=== PATIENT | male | born 2000 | race Caucasian/White ===

== ENCOUNTER 2024-12-15 10:24 | Emergency (ER) | payer OTHER, SELFPAY ==
--- OUTSIDE RECORDS SUMMARY | 2013-12-20 05:15 | XMS_ITS | Continuity of Care Document ---
Author Organization [facility] Address [address] [place] [address] Phone Care Team Providers Care Profiler Name Role Phone Yared Adams Unavailable Unavailable Procedures Procedure Date OFFICE/OUTPATIENT VISIT, [facility] IMMUNIZATION ADMIN TDAP VACCINE >7 IM Advance Directives Directive Yes / No Effective Date File Name Resuscitation Not Answered N/A N/A Life Support Not Answered N/A N/A Intubation Not Answered N/A N/A Antibiotics Not Answered N/A N/A IV Fluid Support Not Answered N/A N/A Tube Feed Not Answered N/A N/A Other Directive N/A N/A WARNING:The information contained in this section is historical and is provided for information only and does not constitute a legal document or any assurance that the information is still accurate. Please verify the information with the spencer of the legal document before using it for clinical purposes. Encounters Encounter Description Practice Location Reason(s) For Visit Diagnoses Date Provider Providers Copied on Encounter OFFICE/OUTPAT IENT VISIT, EST [facility], [address], [place], [id number], [place] tel:[phone] [facility] Need for prophylactic vaccination with combined diphtheria-tet anus-pertussis (DTP) (DTaP) vaccine Zuleyka Mari. [address], [place], [id number], [place]. tel:[phone] Family History Family Member Type Diagnosis Age At Onset No Information Immunizations Vaccine Date Status Comments Tdap administered Note: Tdap vis given. Mom declines MCV,HPV, and Hep A vaccines today. Information sheet given. ; Source: New Immunization Record Payers Payer name Insurance type Covered republican ID Shayan doyle(s) [employer] Medicaid [place] [id number] Social History Type Description Quantity Date Captured Comments Alcohol Use Details Unknown Caffeine Use Details Unknown Tobacco Use Status No Information Smoking Status No Information Sex Male Chief Complaint And Reason For Visit No Information Reason For Referral Reason For Referral No Information History Of Present Illness Encounter Date Complaint History Of Prese nt Illness No Information Functional Status Date Functional Assessmen t No Information Instructions Date Instruction Additional Infor mation No Information Assessments Type Assessment Date No Information Patient Care Teams Name Effective Dates (start - stop) Status Members No Information
--- OUTSIDE RECORDS SUMMARY | 2024-12-12 07:00 | XMS_ITS ---
Author Organization [facility] in [place] Address [address] [place] [address] Care Team Providers Care Author Name Role Phone Wong Mcwilliams Primary Care Provider [phone] Allergies Allergen (clinical drug ingredient) Drug/Non Drug Allergy documented on EMR Reaction Allergy Type Onset Date Status Substance with sulfonamide structure and antibacterial mechanism of action (substance) Sulfa Antibiotics childhood Drug Allergy Active REASON FOR VISIT Headache since - took Relpax daily since then- intensity comes and goes- today 2/10 pain level, feels better today Medications Medication SIG (Take, Route, Frequency, Duration) Notes Start Date End Date Status Viberzi 100 MG 1 tablet with food Orally Twice a day for 90 days 11/10/2024 Active Cefuroxime Axetil 250 MG 1 tablet Orally once a day 12/12/2024 Active Cyproheptadine HCl 4 MG 1 tablet Orally Twice a day for 30 days 05/24/2024 Active Multivitamin - 1 tablet Orally Once a day Active Relpax 40 MG 1 tablet Orally at onset of migraine PRN for 30 days DIRECTIONS FIXED 05/24/2024 Active Vital Signs Weight 168.4 lbs 12/12/2024 Height 71 in 12/12/2024 Blood pressure systolic 130 mm Hg 12/13/19 25 Blood pressure diastolic 80 mm Hg 025 BMI 23.48 kg/m2 12/12/2024 Encounters Encounter Location Date Provider Diagnosis [facility] [address] [place] [address] 12/12/2024 Wong Mcwilliams Migraine headache G43.909 Assessments Encounter Date Diagnosis (ICD Code) Assessment Notes Treatment Notes Treatment Clinical Notes Section Notes 12/12/2024 Migraine headache (ICD-10 - G43.909) 12/12/2024 Other Take NSAIDs as needed for pain. Discussed avoiding headache triggers and improiving diet and sleep habits to prevent headaches. Plan Of Treatment Treatment Notes Assessment Notes Other Take NSAIDs as neede d for pain. Discussed avoiding headache triggers and improiving diet and sleep habits to prevent headaches. Medications Administered Medication Instructions Date of Administration Dosage Notes Ketorolac Tromethamine 12/12/2024 60 mg Orphenadrine Citrate 12/12/2024 60 mg Progress Notes * Rashad MELENDEZ ADOB:[birth year] (24 yo M)Acc No.[id number]:12/12/2024 Progress Note Patient: Rashad CONTEH Provider: Keke Mcwilliams ([facility])MD :2000 A ge:24 Y S ex:Male Date:12/12/2024 Address:[address] [place] [address] Check In:11:00 AM ESTCheck O ut:11:35 AM EST Subjective: * Chief Complaints: * H eadache since - took Relpax daily since then- intensity comes and goes- today 2/10 pain level, feels better today * HPI: G eneral: feel like typical migraine - usualy relpax fixes t no other neurological symptosm - relpax is helping just not going away. H eadache: The patient complains of h eadache. Patient describes headache as - . Patient believes headaches are related to injury n o. Suspected triggers - . Symptoms have been present for 1 -2 days. The symptoms are m oderate. Symptomatic treatment has included N SAIDs. Associated symptoms include n beverley pain, diziness, fatigue.? * ROS: G eneral/Constitutional: Lightheadedness d enies. C hange in appetite d enies. W eight Change d enies. C ardiovascular: Irregular Heartbeat d enies. S welling in hands/feet?denies. R espiratory: Shortness of breath d enies. S hortness of breath at rest d enies. W heezing d enies. N eurologic: Comments S [facility] for details. * Active Problem List L70.9 Acne Modified On:02/09/2023/U Status:confirmed G43.909 Migraine headache Modified On:04/12/2023/U Status:confirmed K58.9 IBS (irritable bowel syndrome) Modified On:08/19/2023/U Status:confirmed B07.9 Wart of hand Modified On:02/17/2023/U Status:confirmed * Medical History: * Surgical History: t onsillectomy tympanostomy tube placement x3 * Hospitalization/Major Diagno stic Procedure: N o Hospitalization History. * Family History: F ather: alive. M other: alive, thyroid. B rother(s): alive. S ister(s): alive.?1 brother(s) , 1 sister(s) - healthy. . * Medications: T akingCefuroxime Axetil 250 MG Tablet 1 tablet Orally once a day Cyproheptadine HCl 4 MG Tablet 1 tablet Orally Twice a day Multivitamin(Multiple Vitamin) - Tablet 1 tablet Orally Once a day Relpax(Eletriptan Hydrobromide) 40 MG Tablet 1 tablet Orally at onset of migraine PRN , Notes to Pharmacist: DIRECTIONS FIXEDViberzi(Eluxadoline) 100 MG Tablet 1 tablet with food Orally Twice a day Medication List reviewed and reconciled with the patientTaking Cefuroxime Axetil 250 MG Tablet 1 tablet Orally once a day Taking Cyproheptadine HCl 4 MG Tablet 1 tablet Orally Twice a day Taking Multivitamin(Multiple Vitamin) - Tablet 1 tablet Orally Once a day Taking Relpax(Eletriptan Hydrobromide) 40 MG Tablet 1 tablet Orally at onset of migraine PRN , Notes to Pharmacist: DIRECTIONS FIXEDTaking Viberzi(Eluxadoline) 100 MG Tablet 1 tablet with food Orally Twice a day Medication List reviewed and reconciled with the patient * Allergies: S ulfa Antibiotics: childhood - Allergyno[Allergies Verified] Objective: * Vitals: W t:168.4lbs, Ht: 71 in, BP:130/80mm Hg, BMI:23.48Index, Ht-cm: 180.34 cm, Wt-k.39 kg. * Examination: G eneral Examination: GENERAL APPEARANCE: in no acute distress, well developed, well nourished. LUNGS: clear to auscultation bilaterally. CARDIO: S1, S2 normal, no murmurs, rubs, gallops. EXTREMITIES: no clubbing, cyanosis, or edema. NEUROLOGIC: alert, oriented to time, place, & person.? Assessment: * Assessment: 1. M igraine headache - G43.909 (Primary) Plan: * Treatment: * Therapeutic Injections: Ketorolac Tromethamine : 60 mg (Route: Intramuscular) given by CATIA Wan on right deltoid (Migraine headache) Orphenadrine Citrate : 60 mg (Route: Intramuscular) given by CATIA Wan on left deltoid (Migraine headache) * Procedure Codes: 9 6372 THERAP.INJ. OF MED. INTRAMUSCULAR OR [id number] TORADOL, PER 15 MG, Units: 4.00 , Modifiers: JZ J2360 NORFLEX,UP TO 60MG. * * Sign off status: Completed Visit Status: C HK (Check Out) true * Provider: Keke Mcwilliams ([facility])MD Date: 0 12/12/2024 Generated for Danna murphy/Mildred/Lanetteitting on: 0 12/15/2024 10:51 AM EDT History and Physical Notes * HPI (History of Present Illness) Category Sub-Category Detail Notes Category Not es Headache The patient complains of headache Patient describes headache as - Patient believes headaches are related t o injury no Suspected triggers - Symptoms have been present for 1-2 days The symptoms are moderate Symptomatic treatment has included NSAID s Associated symptoms include neck pain, d iziness, fatigue General feel like typical migraine - usualy relpax fixes t no other neurological symptosm - relpax is helping just not going away Examination Category Sub-Category Detail Notes Category Not es General Examination GENERAL APPEARANCE: in no ac [place] distress, well developed, well nourished CARDIO: S1, S2 normal, no mu rmurs, rubs, gallops LUNGS: clear to auscultatio n bilaterally NEUROLOGIC: alert, oriented to t ketan, place, & person EXTREMITIES: no clubbing, cyanosi s, or edema
[2024-12-15] VITALS (28 sets, daily range): BP systolic 125–152; BP diastolic 74–94; PULSE 61–881; TEMP 36.2–36.7; O2SAT 99–100
--- OUTSIDE RECORDS SUMMARY | 2024-12-15 05:15 | XMS_ITS ---
Author Organization The [facility] in [place] Address [address] [place] [address] Care Team Providers Care Human Services Program Specialist Name Role Phone Wong Mcwilliams Primary Care Provider [phone] Allergies Allergen (clinical drug ingredient) Drug/Non Drug Allergy documented on EMR Reaction Allergy Type Onset Date Status Substance with sulfonamide structure and antibacterial mechanism of action (substance) Sulfa Antibiotics childhood Drug Allergy Active REASON FOR VISIT Presents to office alone for c/o migraine off and on x1 week Medications Medication SIG (Take, Route, Frequency, Duration) Notes Start Date End Date Status Viberzi 100 MG 1 tablet with food Orally Twice a day for 90 days 11/10/2024 Active Multivitamin - 1 tablet Orally Once a day Active Relpax 40 MG 1 tablet Orally at onset of migraine PRN for 30 days DIRECTIONS FIXED 05/24/2024 Active Cefuroxime Axetil 250 MG 1 tablet Orally once a day 12/12/2024 Active Cyproheptadine HCl 4 MG 1 tablet Orally Twice a day for 30 days 05/24/2024 Active Social History Tobacco Use: Social History Observation Description Date Details (start date - stop date) Never Smoker NA - NA Tobacco Use/Smoking Question Answer Notes Patient is a nonsmoker AUDIT-C (Standard) Question Answer Notes Did you have a drink containing alcohol in the p ast year? No Points 0 Interpretation Negative Vital Signs Weight 167.2 lbs 12/15/2024 Height 71 in 12/15/2024 Blood pressure systolic 164 mm Hg 12/16/19 25 Blood pressure diastolic 122 mm Hg 025 BMI 23.32 kg/m2 12/15/2024 Encounters Encounter Location Date Provider Diagnosis [facility] [address] [place] [address] 12/15/2024 Wong Mcwilliams Migraine headache G43.909 Assessments Encounter Date Diagnosis (ICD Code) Assessment Notes Treatment Notes Treatment Clinical Notes Section Notes 12/15/2024 Migraine headache (ICD-10 - G43.909) Plan Of Treatment No Information Medications Administered Medication Instructions Date of Administration Dosage Notes Ketorolac Tromethamine 12/15/2024 60 mg Orphenadrine Citrate 12/15/2024 60 mg Promethazine 25mg 12/15/2024 25 mg Progress Notes * Rashad MELENDEZ ADOB:[birth year] (24 yo M)Acc No.[id number]:12/15/2024 UNLOCKED PROGRESS NOTE Progress Note Patient: Rashad CONTEH Provider: Keke Mcwilliams ([facility])MD :2000 A ge:24 Y S ex:Male Date:12/15/2024 Address:[address] [place], [place] [address] Check In:09:07 AM EST Subjective: * Chief Complaints: * 1 . Presents to office alone for c/o migraine off and on x1 week. * HPI: G eneral: Sots did help working - on limiting caffeine - has been limitin g meds. * ROS: E ENT: hearing changes d enies. v isual changes d enies.?non-healing mouth sores d enies. s wollen glands or neck lumps d enies. h oarseness d enies. s ore throat d enies. d ifficulty swallowing d enies. n ose bleeds d enies. n luisa congestion d enies. e ar ache d enies. e ar discharge?denies. r inging in ears d enies. l ight sensitivity d enies. e ye pain d enies. b lurring d enies. e ye irritation d enies. d ouble vision d enies.?vision loss d enies. G eneral/Constitutional: Sweats: D enies. F atigue d enies. S leep problems d enies. A norexia d enies. M alaise d enies. W eight loss d enies.?Fatigue or Weakness d enies. F ever or Chills d enies. C ardiovascular: Shortness of Breath w/lying flat d enies. L ightheadedness/dizziness d enies. C hest tightness/ heavy pressure d enies. S welling of legs, ankles, or feet d enies. W aking up with shortness of breath d enies. C hest pain denies. P alpitations d enies. W eight gain d enies. R espiratory: Chronic or frequent cough d enies. C oughing up blood?denies. D ifficulty breathing d enies. P roductive cough d enies. S noring?denies. S hortness of breath that awakens from sleep (PND) d enies. C hest pain d enies. S putum production d enies. W heezing d enies. M usculoskeletal: Joint pain d enies. J oint Fluid d enies. B ack pain d enies. K nee pain d enies. N beverley pain d enies. J oint Stiffness d enies. M uscle cramps d enies. W eakness of muscles d enies. A rthritis d enies. M uscle aches d enies. P ain in shoulder(s) d enies. S wollen joints d enies. * Medical History: I BS (irritable bowel syndrome), Migraine headache, Acne. * Surgical History: t onsillectomy , tympanostomy , tube placement x3 . * Family History: F ather: alive. M other: alive, thyroid. B rother(s): alive. S ister(s): alive.?1 brother(s) , 1 sister(s) - healthy. . * Social History: T obacco Use: T obacco Use/Smoking P atient is a n onsmoker D rug/Alcohol: A SARAI-C (Standard) D id you have a drink containing alcohol in the past year? N o P oints 0 I nterpretation N egative * Medications: T aking Cefuroxime Axetil 250 MG Tablet 1 tablet Orally once a day , Taking Cyproheptadine HCl 4 MG Tablet 1 tablet Orally Twice a day , Taking Multivitamin(Multiple Vitamin) - Tablet 1 tablet Orally Once a day , Taking Relpax(Eletriptan Hydrobromide) 40 MG Tablet 1 tablet Orally at onset of migraine PRN , Notes to Pharmacist: DIRECTIONS FIXED, Taking Viberzi(Eluxadoline) 100 MG Tablet 1 tablet with food Orally Twice a day , Medication List reviewed and reconciled with the patient * Allergies: S ulfa Antibiotics: childhood - Allergy. Objective: * Vitals: W t:167.2lbs, Ht: 71 in, BP:164/122mm Hg, BMI:23.32Index, Ht-cm: 180.34 cm, Wt-k.84 kg. * Examination: P hysical Exam: GENERAL: w ell developed, well nourished, in no acute distress. HEAD: n ormocephalic/atraumatic. EYES: p upils equal, round and reactive to light, conjunctivae and sclerae normal. EARS: n o deformity or lesion of external ear, canals and TM appear normal bilaterally, TM's intact, not inflamed with normal light reflex, hearing grossly normal to conversational speech. NOSE: n o deformity, discharge, inflammation, or lesions.? MOUTH: m ucous membranes moist, normal oropharynx and posterior pharynx without lesions or exudates, tongue normal, dentition normal. NECK: n beverley supple, no masses or palpable cervical nodes, trachea midline, thyroid without nodules, masses, tenderness, or enlargement. CHEST: n o chest wall deformity, no chest wall tenderness.? LUNGS: n ormal respiratory effort and clear to auscultation, no wheezes, rales, or rhonchi, good air exchange. CARDIO: r egular rate and rhythm, normal S1 and S2, nor murmur, rub, or gallop. PULSES: n ormal capillary refill. ABDOMEN: s oft, non-distended, non-tender, no masses. MUSCULOSKELETAL: n o deformity or scoliosis noted, normal range of motion, joints normal, no erythema, edema, effusion, or ecchymosis. EXTREMITY: n o clubbing, cyanosis, edema, or deformity with normal ROM in both upper and lower bilateral extremities. NEUROLOGIC: g rossly normal. SKIN: n o rashes, ulcerations, or suspicious lesions. LYMPH NODES: n o cervical adenopathy, nodes normal. MENTAL STATUS: a lert and oriented x3, normal mood and affect. Assessment: * Assessment: 1. M igraine headache - G43.909 (Primary) Plan: * Treatment: * Therapeutic Injections: Ketorolac Tromethamine : 60 mg (Route: Intramuscular) given by MALDONADO Rodriguez on left gluteus (Migraine headache) Orphenadrine Citrate : 60 mg (Route: Intramuscular) given by MALDONADO Rodriguez on right gluteus (Migraine headache) Promethazine 25mg : 25 mg (Route: Intramuscular) given by MALDONADO Rodriguez on left gluteus (Migraine headache) * Procedure Codes: J 2550 PHENERGAN 25MG, J1885 TORADOL, PER 15 MG, 81154 THERAP.INJ. OF MED. INTRAMUSCULAR OR SUBCUTANEOUS, J2360 NORFLEX,UP TO 60MG. * * Electronic signature of Wong Mcwilliams MD, [phone] on 12/15/2024 at 10:51 AM EDT Sign off status: Pending Visit Status: A RR (Check-In) * Provider: Keke Mcwilliams ([facility])MD Date: 12/15/2024 Generated for Chandanai jeffrey/Mildred/Lanetteitting on: 0 12/15/2024 10:51 AM EDT History and Physical Notes * HPI (History of Present Illness) Category Sub-Category Detail Notes Category Not es General Sots did help working - on limiting caffeine - has been limitin g meds Examination Category Sub-Category Detail Notes Category Not es Physical Exam GENERAL: well developed, well nourished, in no acute distress HEAD: normocephalic/atraum atic EYES: pupils equal, round and reactive to light, conjunctivae and sclerae normal EARS: no deformity or lesi on of external ear, canals and TM appear normal bilaterally, TM's intact, not inflamed with normal light reflex, hearing grossly normal to conversational speech NOSE: no deformity, discha rge, inflammation, or lesions MOUTH: mucous membranes keith st, normal oropharynx and posterior pharynx without lesions or exudates, tongue normal, dentition normal NECK: neck supple, no mass es or palpable cervical nodes, trachea midline, thyroid without nodules, masses, tenderness, or enlargement CHEST: no chest wall deform ity, no chest wall tenderness LUNGS: normal respiratory e ffort and clear to auscultation, no wheezes, rales, or rhonchi, good air exchange CARDIO: regular rate and rhy thm, normal S1 and S2, nor murmur, rub, or gallop PULSES: normal capillary ref ill ABDOMEN: soft, non-distended, non-tender, no masses RECTAL: MUSCULOSKELETAL: no deformity or scol iosis noted, normal range of motion, joints normal, no erythema, edema, effusion, or ecchymosis EXTREMITY: no clubbing, cyanosi s, edema, or deformity with normal ROM in both upper and lower bilateral extremities NEUROLOGIC: grossly normal SKIN: no rashes, ulceratio ns, or suspicious lesions LYMPH NODES: no cervical adenopat hy, nodes normal MENTAL STATUS: alert and oriented x 3, normal mood and affect
--- OUTSIDE RECORDS SUMMARY | 2024-12-15 06:23 | XMS_ITS ---
Author Organization The [facility] in [place] Address [address] [place] [address] Care Team Providers Care Linoleum Tile Floor Layer Name Role Phone Oswaldoosbaldo Wong Primary Care Provider REASON FOR VISIT repeat shots Encounters Encounter Location Date Provider Diagnosis [facility] [address] [place] [address] 12/15/2024 Wong Mcwilliams Plan Of Treatment No Information Progress Notes * Rashad MELENDEZ ADOB:[birth year] (24 yo M)Acc No.[id number]:12/15/2024 Patient: Alta Rashad HANKS :2000 A ge:24 Y S ex:Male Address:[address] [place] [address], [facility] * true * Date: Generated for Printi ng/Famog/eTransmitting on: 0 12/15/2024 10:51 AM EDT
--- NOTE | 2024-12-15 10:26 | ECG_ITS ---
The [facility] Test Date: 2024-12-15 Pat Name: LORA MELENDEZ Department: Room: - Gender: Female Angiography Nurse: : 2000 Requested By: [id number] Order Number: [id number] Reading MD: GANGA MCCALL M.D. Measurements Intervals Grants Rate: 63 P: 8 IL: 120 QRS: 73 QRSD: 100 T: 35 QT: 410 QTc: 418 Interpretive Statements 1100 Sinus rhythm [address]LEV, PROBABLE NORMAL EARLY REPOL PATTERN 9130 borderline ECG Compared to ECG 08/04/2019 07:51:46 ST (T wave) deviation now present Electronically Signed On 12-15-2024 19:31:39 EDT by GANGA MCCALL M.D.
--- NOTE | 2024-12-15 10:26 | CT_ITS ---
The [address] [address] Patient Name: LORA MELENDEZ MRN: [id number] date: 2000 Sex: M Assigned Patient Location: ED.MAIN Current Patient Location: ED.MAIN Accession/Order Number: [id number] Exam Date: 12/15/2024 10:59 Report Date: 12/15/2024 11:04 At the request of: XOCHITL LEE MD Procedure: CT head/brain wo con CT BRAIN WITHOUT CONTRAST: CLINICAL HISTORY: Patient awoke with migraine headache. Seizure today at Dr's office. COMPARISON: CT 01/15/2020 TECHNIQUE: Contiguous axial unenhanced images were obtained through the brain. This CT exam was performed using one or more following dose reduction techniques: Automated exposure control, adjustment of the mA and/or kV according to patient size, or use of iterative reconstruction technique. FINDINGS: The ventricles are normal in size and position. There are no areas of abnormal attenuation. There is no hemorrhage, mass effect or extra-axial collections. The imaged paranasal sinuses and mastoid air cells are clear. CT/CT head/brain wo con IMPRESSION: NO ACUTE INTRACRANIAL ABNORMALITY. Impression dictated by: Mable Peña M.D. 12/15/2024 11:04 AM Dictation Location: [place] [address] Electronically authenticated by: [id number] Y Date: 12/15/2024 11:04
--- NOTE | 2024-12-15 10:34 | PC.NURSE ---
pt reports headache has resolved
[2024-12-15 10:44] LABS: Basophils Absolute Auto 0.1 10^3/uL (0.0-0.1); Basophils Percent Auto 0.8 % (0.2-2.0); Eosinophils Absolute Auto 0.1 10^3/uL (0.0-0.7); Eosinophils Percent Auto 1.2 % (0.9-7.0); Hematocrit 50.3 % (36.0-48.0); Hemoglobin 17.9 g/dL (12.0-16.0); Immature Granulocytes Abs Auto 0.02 10^3/uL (0.00-0.03); Immature Granulocytes Pct Auto 0.3 % (0.0-0.5); Lymphocytes Absolute Auto 2.6 10^3/uL (1.2-3.8); Lymphocytes Percent Auto 38.8 % (20.5-60.0); Mean Corpuscular HGB Conc 35.6 g/dL (29.9-35.2); Mean Corpuscular Hemoglobin 30.2 pg (26.7-34.0); Mean Corpuscular Volume 84.8 fL (81.0-99.0); Mean Platelet Volume 10.3 fL (9.5-13.5); Monocytes Absolute Auto 0.6 10^3/uL (0.3-0.8); Monocytes Percent Auto 9.7 % (1.7-12.0); Neutrophils Absolute Auto 3.2 10^3/uL (1.4-6.5); Neutrophils Percent Auto 49.2 % (43.0-75.0); Platelet Count 275 10^3/uL (150-450); Red Blood Count 5.93 10^6/uL (4.20-5.40); Red Cell Distribution Width 12.6 % (11.0-15.0); White Blood Count 6.6 10^3/uL (4.0-11.0)
--- OUTSIDE RECORDS SUMMARY | 2024-12-15 10:51 | XMS_ITS | Patient Health Record ---
Author Organization [facility] [place] Address [address] [place] [address] Care Team Providers Care Production Leader Name Role Phone Wong Mcwilliams Primary Care Provider Allergies Allergen (clinical drug ingredient) Drug/Non Drug Allergy documented on EMR Reaction Allergy Type Onset Date Status Substance with sulfonamide structure and antibacterial mechanism of action (substance) Sulfa Antibiotics childhood Drug Allergy Active Results Component Value Reference Range Notes CBC AUTO DIFF (Not yet revie wed by provider) Interpretation: Performing Lab: Notes/Report: [facility] , White Blood Count 6.6 4.0-11.0 10 3/uL Red Blood Count 5.93 4.20-5.40 10 6/uL Hemoglobin 17.9 12.0-16.0 g/dL Hematocrit 50.3 36.0-48.0 % Mean Corpuscular Volume 84.8 81.0-99.0 fL Mean Corpuscular Hemoglobin 30.2 26.7-34.0 pg Mean Corpuscular HGB Conc 35.6 29.9-35.2 g/dL Red Cell Distribution Width 12.6 11.0-15.0 % Platelet Count 275 150-450 10 3/uL Mean Platelet Volume 10.3 9.5-13.5 fL Neutrophils Percent Auto 49.2 43.0-75.0 % Lymphocytes Percent Auto 38.8 20.5-60.0 % Monocytes Percent Auto 9.7 1.7-12.0 % Eosinophils Percent Auto 1.2 0.9-7.0 % Basophils Percent Auto 0.8 0.2-2.0 % Immature Granulocytes Pct Auto 0.3 0.0-0.5 % Neutrophils Absolute Auto 3.2 1.4-6.5 10 3/uL Lymphocytes Absolute Auto 2.6 1.2-3.8 10 3/uL Monocytes Absolute Auto 0.6 0.3-0.8 10 3/uL Eosinophils Absolute Auto 0.1 0.0-0.7 10 3/uL Basophils Absolute Auto 0.1 0.0-0.1 10 3/uL Immature Granulocytes Abs Auto 0.02 0.00-0.03 10 3/uL Performing Lab: see note ML - [facility] LB ECG 12 lead (Not yet reviewe d by provider) Interpretation: Performing Lab: Notes/Report: Source Facility: [place] [address] [place] [address] Electrocardiograph Report Draft Patient: LORA MELENDEZ MR#: [id number] : 2000 Acct:[id number] Age/Sex: 24 / F ADM Date: Loc: ER Attending Dr: Ordering Physician: Anais Wood Date of Service: 12/15/24 Procedure(s): ECG 12 lead Accession Number(s): [id number] cc: [facility] Test Date: 2024-12-15 Pat Name: LORA MELENDEZ Department: Room: - Gender: Female City Magistrate: : 2000 Requested By: 1854 Order Number: [id number] Reading MD: Measurements Intervals [place] Rate: 63 P: 8 ID: 120 QRS: 73 QRSD: 100 T: 35 QT: 410 QTc: 418 Interpretive Statements 1100 Sinus rhythm 1102 Sinus arrhythmia [address] elevation 9130 borderline ECG No previous ECG available for comparison Dictated By: Ros Wagner Signed By: DD/ 1027 TD/TT: Humanities Coordinator: [place] [address] Electrocardiograph Report Draft Patient: MEGAN MELENDEZ MR#: [id number] : 2000 Acct:[id number] Age/Sex: 24 / F ADM Date: Loc: ER Attending Dr: Ordering Physician: Anais Wood Date of Service: 12/15/24 Procedure(s): ECG 12 lead Accession Number(s): [id number] cc: [facility] Test Date: 2024-12-15 Pat Name: LORA CAMP Department: 44 Room: - Gender: Female City Magistrate: : 2000 Janny sunshine By: 1854 Order Number: [id number] Reading MD: Measurements Intervals [place] Rate: 63 P: 8 ID: 120 QRS: 73 QRSD: 100 T: 35 QT: 410 QTc: 418 Interpretive Statements 1100 Sinus rhythm 1102 Sinus arrhythmia [address] elevation 9130 borderline ECG No previous ECG avai lable for comparison Dictated By: Ros Wagner Signed By: DD/ 1027 TD/TT: Humanities Coordinator: Reason For Referral No Information Medications Medication SIG (Take, Route, Frequency, Duration) [...] Question Answer Notes Patient is a nonsmoker Alcohol Screen (Audit-C) Question Answer Notes Did you have a drink contain ing alcohol in the past year? Yes How often did you have 6 or more drinks on one occasion in the past year? Declined to specify (0 points) How many drinks did you have on a typical day when you were drinking in the past year? 1 or 2 drinks (0 point) How often did you have a dri nk containing alcohol in the past year? Weekly (3 points) Points 3 Interpretation Negative AUDIT-C (Standard) Question Answer Notes Did you have a drink containing alcohol in the p ast year? No Points 0 Interpretation Negative Problems Problem Type SNOMED Code ICD Code Onset Dates Problem Status W/U Status Risk Notes Problem Acne (56827747) Acne (L70.9) Active confirmed Problem Migraine variant with headache (disorder) (716758243) Migraine headache (G43.909) Active confirmed Problem Irritable bowel syndrome (52623373) IBS (irritable bowel syndrome) (K58.9) Active confirmed Problem Wart of hand (B07.9) Active confirmed Vital Signs Temperature 97.8 degrees Fahrenheit 11/01/2024 Blood pressure diastolic 122 mm Hg 12/15/2024 Height 71 in 12/15/2024 Blood pressure systolic 164 mm Hg 12/15/2024 Weight 167.2 lbs 12/15/2024 BMI 23.32 kg/m2 12/15/2024 Encounters Encounter Location Date Provider Diagnosis [facility] [address] [facility] [place] [address] 04/04/2024 [facility] [address] [facility] [place] [address] 04/04/2024 Wong Oswaldoy [facility] [address] [place] [facility] [place] [address] 05/24/2024 [facility] [address] [facility] [place] [address] 05/24/2024 Wong y [facility] [address] [facility] [place] [address] 05/24/2024 [facility] [address] [facility] [place] [address] 11/09/2024 Wong Hoy IBS (irritable bowel syndrome) K58.9 [facility] [address] [facility] [place] [address] 11/10/2024 Wong Hoy IBS (irritable bowel syndrome) K58.9 [facility] [address] [place] [facility] [place] [address] 12/15/2024 Wong y [facility] [address] [facility] [place] [address] 12/15/2024 Wong Hoy Migraine headache G43.909 [facility] [address] [facility] [place] [address] 04/13/2024 Wong Hoy IBS (irritable bowel syndrome) K58.9 [facility] [address] [place] [address] 06/23/2024 Wong Hoy Acute non-recurrent sinusitis, unspecified location J01.90 and Nasal congestion R09.81 [facility] [address] [place] [address] 11/01/2024 Wong Hoy Acute bronchitis, unspecified organism J20.9 [facility] [address] [place] [address] 12/12/2024 Wong Hoy Migraine headache G43.909 Assessments Encounter Date Diagnosis (ICD Code) Assessment Notes Treatment Notes Treatment Clinical Notes Section Notes 04/13/2024 IBS (irritable bowel syndrome) (ICD-10 - K58.9) 06/23/2024 Acute non-recurrent sinusitis, unspecified location (ICD-10 - J01.90) Rest and drink more liquids, especially water. You may use a humidifier or vaporizer to help keep the drainage moist. Vvaz-xrn-ltttkpr Nasal Saline may help the stuffy and runny nose. Use Ibuprofen and or Tylenol as needed for fever, chills, body aches or pain. Children 5 years old should not be given wuwp-amv-cmdgvtm cough and cold medications such as guaifenesin and dextromethorphan. If you're over age 5, you may try ppad-qrr-ptaawun cold medications such as guaifenesin and dextromethorphan, or multi-symptom cold reliever such as Dayquil to help reduce the symptoms. Antibiotics have been prescribed. You should take these until completed and follow the directions. Antibiotics can sometimes cause upset stomach, and in rare cases, serious allergic reactions or serious gastrointestinal problems. If you start having severe abdominal pain, severe vomiting, or bloody diarrhea, you should be reevaluated by your physician or urgent care immediately. Follow up with your Primary Care Provider or return to clinic if symptoms do not improve within 3-5 days 11/01/2024 Acute bronchitis, unspecified organism (ICD-10 - J20.9) Rest and drink more liquids, especially water. You may use a humidifier or vaporizer to help keep the drainage moist. Wibm-owy-dccyhvm Nasal Saline may help the stuffy and runny nose. Use Ibuprofen and or Tylenol as needed for fever, chills, body aches or pain. Children 5 years old should not be given pmkh-yzj-itmgnoq cough and cold medications such as guaifenesin and dextromethorphan. If you're over age 5, you may try ardc-nqf-vqsfffu cold medications such as guaifenesin and dextromethorphan, or multi-symptom cold reliever such as Dayquil to help reduce the symptoms. Antibiotics have been prescribed. You should take these until completed and follow the directions. Antibiotics can sometimes cause upset stomach, and in rare cases, serious allergic reactions or serious gastrointestinal problems. If you start having severe abdominal pain, severe vomiting, or bloody diarrhea, you should be reevaluated by your physician or urgent care immediately. Follow up with your Primary Care Provider or return to clinic if symptoms do not improve within 3-5 days. If you develop severe symptoms such as shortness of breath, repeated vomiting, coughing up blood, or chest pain you should go to the emergency room or call 911 12/12/2024 Migraine headache (ICD-10 - G43.909) 12/15/2024 Migraine headache (ICD-10 - G43.909) 11/09/2024 IBS (irritable bowel syndrome) (ICD-10 - K58.9) 11/10/2024 IBS (irritable bowel syndrome) (ICD-10 - K58.9) 06/23/2024 Nasal congestion (ICD-10 - R09.81) 12/12/2024 Other Take NSAIDs as needed for pain. Discussed avoiding headache triggers and improiving diet and sleep habits to prevent headaches. Plan Of Treatment Pending Test Test Name Order Date MRI Brain w/o contrast 04/12/2023 CBC AUTO DIFF 12/15/2024 ECG 12 lead 12/15/2024 Insurance Providers Payer Name Payer Address Payer Phone Subscriber Number Group Number Insured Name Patient Relationship to Insured Coverage Start Date Coverage End Date MMO [employer] [address] [place] [phone] [id number] Toya Melendez Parent Medications Administered Medication Instructions Date of Administration Dosage Notes Ketorolac Tromethamine 04/12/2023 60 mg 60 Ketorolac Tromethamine 12/12/2024 60 mg Ketorolac Tromethamine 12/15/2024 60 mg Orphenadrine Citrate 04/12/2023 60 mg 60 Orphenadrine Citrate 12/12/2024 60 mg Orphenadrine Citrate 12/15/2024 60 mg Promethazine 25mg 12/15/2024 25 mg Triamcinolone 40 mg/ml 11/01/2024 80 mg Medical (General) History Medical History History ICD Code IBS (irritable bowel syndrome) K58.9 Migraine headache G43.909 Acne L70.9 Surgical History Surgery Date(Month/Year) tonsillectomy tube placement x3 tympanostomy
--- OUTSIDE RECORDS SUMMARY | 2024-12-15 10:51 | XMS_ITS ---
Author Organization [facility] Address [address] [place], [place] [id number] Care Team Providers Care Cooperative Education Coordinator Name Role Phone Unavailable Primary Care Provider Unavailabl e Transplant Episode Liver Potential Donor [facility] ([place], [place]) - [facility] Referred on 11/08/2024 Marked as Active on 11/08/2024 Reason: Living Donor Inquiry Liver CoordinatorRaffaele Gavin Phone: N/A Fax: N/A Email: N/A Care Team Name Role Phone Fax Email Raffaele Gavin Liver Coordinator N/A N/A N/A Events Pre-Donation Referred: 11/08/2024
--- OUTSIDE RECORDS SUMMARY | 2024-12-15 10:51 | XMS_ITS | Clinical Summary ---
Author Organization [facility] Address [address] [facility] [place] [address] Phone Care Team Providers Care Cigar Tobacco Rehandler Name Role Phone Unavailable Primary Care Provider Unavailabl e Social History Tobacco Use Types Packs/Day Years Used Date Smoking Tobacco: Never Assessed Sex and Gender Information Value Date Recorded Sex Assigned at Not on file Legal Sex Male 12:07 PM EST Gender Identity Not on file Sexual Orientation Not on file Plan of Treatment Not on file
--- OUTSIDE RECORDS SUMMARY | 2024-12-15 10:51 | XMS_ITS | Clinical Summary ---
Author Organization [facility] Address [address] [place] [address] Care Team Providers Care Senior Game Designer Name Role Phone Wolfgang Mcwilliams MD Primary Care Provider [phone] Allergies Active Allergy Reactions Criticality Noted Date Comments Sulfa Antibiotics 09/12/2020 Other Reaction(s): Unknown, Unknown Reaction Trimethoprim 01/27/2024 Other Reaction(s): Unknown Medications cefuroxime (Ceftin) 250 MG tablet Take 250 mg by mouth 4 Active cyproheptadine (Periactin) 4 MG tablet Take 4 mg by mouth 4 Active SUMAtriptan (Imitrex) 100 MG tablet 3 Active Eluxadoline (Viberzi) 100 MG tablet Take by mouth Active methylPREDNISol one (Medrol Dospak) 4 MG tabletsIndicati ons:Right knee pain, unspecified chronicity Use as directed by package instructions 21 tablet 1 4 Active Active Problems No known active problems Social History Tobacco Use Types Packs/Day Years Used Date Smoking Tobacco: Never Smokeless Tobacco: Never Tobacco Cessation:Counseling Given: Not Answered Comments:Never used Alcohol Use Standard Drinks/Week Comments Yes 2 (1 standard drink = 0.6 oz pur e alcohol) A week estimate Sex and Gender Information Value Date Recorded Sex Assigned at Not on file Legal Sex Male 7:12 PM EDT Gender Identity Not on file Sexual Orientation Not on file Last Filed Vital Signs Vital Sign Reading Time Taken Comments Blood Pressure 129/82 08/05/2020 12:00 PM EST Pulse - - Temperature - - Respiratory Rate - - Oxygen Saturation - - Inhaled Oxygen Concentration - - Weight 78.5 kg (173 lb) 01/27/2024 11:21 AM EDT Height 179.1 cm (5' 10.5 ) 01/27/2024 11:21 AM E DT Body Mass Index 24.47 01/27/2024 11:21 AM EDT Plan of Treatment Health Maintenance Due Date Last Done Comments Influenza Vaccine (Season Ended) 2025 06/15/20 23, 05/01/[address] [place] [address] [employer] Care Teams Senior Game Designer Relationship Specialty Start Date End Date Wolfgang Mcwilliams MD PCP - General Family Medicine 01/27/24
[2024-12-15 11:02] LABS: Alanine Aminotransferase 36 U/L (16-63); Albumin Globulin Ratio 1.3; Albumin Level 4.5 g/dL (3.4-5.0); Alkaline Phosphatase 110 U/L (46-116); Anion Gap 16.9; Aspartate Amino Transferase 34 U/L (15-37); BUN Creatinine Ratio 19.6; Bilirubin Total 0.9 mg/dL (0.2-1.0); Calcium 9.5 mg/dL (8.5-10.1); Carbon Dioxide 27.6 mmol/L (21.0-32.0); Chloride 100 mmol/L (98-107); Estimated GFR (African America >60 (>=60 mL/min/1.73m^2); Estimated GFR (Non-African Ame >60 (>=60 mL/min/1.73m^2); Ethanol <3 mg/dL; Globulin 3.5 g/dL; Glucose 127 mg/dL (74-106); INR 1.09; Magnesium 2.1 mg/dL (1.8-2.4); Potassium 3.5 mmol/L (3.5-5.1); Prothrombin Time 11.5 sec (9.0-11.6); Sodium 141 mmol/L (136-145)
[2024-12-15 11:04] LABS: Troponin I High Sensitivity <4.0 pg/mL (4.0-76.1)
[2024-12-15 13:56] LABS: Amphetamine Screen Urine NEGATIVE (NEGATIVE); Barbiturates Screen Urine NEGATIVE (NEGATIVE); Benzodiazepines Screen Urine NEGATIVE (NEGATIVE); Buprenorphine Screen Urine NEGATIVE (NEGATIVE); Cannabinoid Screen Urine NEGATIVE (NEGATIVE); Cocaine Screen Urine NEGATIVE (NEGATIVE); Methadone Screen Urine NEGATIVE (NEGATIVE); Methamphetamines Screen Urine NEGATIVE (NEGATIVE); Opiate Screen Urine NEGATIVE (NEGATIVE); Oxycodone Screen Urine NEGATIVE (NEGATIVE); Phencyclidine Screen Urine NEGATIVE (NEGATIVE); Tricyclic Antidepressant Urine NEGATIVE (NEGATIVE)
--- NOTE | 2024-12-15 14:37 | ED.GENADUL1 ---
HPI HPI - General Adult General Chief complaint: Headache Stated complaint: POSSIBLE SEIZURE Time Seen by Provider: 12/15/24 10:26 Source: patient Mode of arrival: ambulance History of Present Illness HPI narrative: The patient is a 24-year-old male with no known past medical history is coming to us from his primary care office after he has consistently having headache for the last 1 week although the patient mentioned that he had 1 injection before by his primary care doctor earlier this week on Wednesday when he had the Phenergan and Toradol after which he was feeling better but he woke up again next morning with a headache, the headache is mostly frontal associated with no nausea no vomiting no photosensitivity and no neck pain The patient had another appointment today to get injection again for headache and apparently he had a seizure at the office with his primary care doctor and he was sent here for evaluation, he had urinary incontinence By the time the patient came to us he had no headache and no symptoms Related Data Allergies Allergy/AdvReac Type Severity Reaction Status Date / Time Sulfa (Sulfonamide Allergy Severe Rash Verified 12/15/24 10:32 Antibiotics) Opioid HPI Opioid Management Most Recent Opioid Data: Ur Phencyclidine Scrn, (NEGATIVE) Negative Today, 13:28 Review of Systems ROS Status of ROS 10 or more systems reviewed and unremarkable except as noted in history and below [facility] Medical History (Updated 12/15/24 @ 17:35 by Anais Wood MD) Migraine ?G43.909 - Migraine, unspecified, not intractable, without status migrainosus (ICD-10) Exam Narrative Exam Narrative: Nurses notes and vital signs reviewed and patient is not hypoxic. General: Well-appearing and in no apparent distress. Skin: Warm, dry, no pallor noted. No rash. Head: Normocephalic, atraumatic. Neck: Supple, non-tender. Eye: Pupils are equal, round and EOMI. No scleral icterus. Ears, Nose, Mouth, and Throat: TM are clear, no nasal mucosal hypertrophy. Oral mucosa is moist, no posterior oropharynx erythema, uvula is mid-line Cardiovascular: Regular Rate and Rhythm without murmur, gallop or rub. Respiratory: No accessory muscle use or respiratory distress. Lungs are clear to auscultation, no wheezing, rales or rhonchi Chest Wall: no tenderness Back: No midline thoracic or lumbar vertebral tenderness. No CVA tenderness Musculoskeletal: normal ROM, no calf or popliteal tenderness, no lower extremity edema/swelling GI: Abdomen is soft, non-distended. Normal bowel sounds. No masses appreciated. No tenderness to palpation. No rebound, guarding, or rigidity noted. Neurological: A&O x4. No cranial nerve dysfunction observed. No truncal ataxia. Moves all extremities. Sensation intact. Psychiatric: Cooperative and interactive. Normal mood and affect. Constitutional Vital Signs, click to edit/add: Last Vital Signs Temp 98.1 F 12/15/24 17:17 Pulse 881 H 12/15/24 17:17 Resp 16 12/15/24 17:17 BP 135/74 12/15/24 17:17 Pulse Ox 100 12/15/24 17:17 O2 Del Method Room Air 12/15/24 17:17 Course Vital Signs Vital signs: Vital Signs Temperature 97.2 F L 12/15/24 10:26 Pulse Rate 67 12/15/24 10:26 Respiratory Rate 18 12/15/24 10:26 Blood Pressure 152/94 H 12/15/24 10:26 Pulse Oximetry 100 12/15/24 10:26 Oxygen Delivery Method Room Air 12/15/24 10:26 Temperature 98.1 F 12/15/24 17:17 Pulse Rate 881 H 12/15/24 17:17 Respiratory Rate 16 12/15/24 17:17 Blood Pressure 135/74 12/15/24 17:17 Pulse Oximetry 100 12/15/24 17:17 Oxygen Delivery Method Room Air 12/15/24 17:17 Medical Decision Making [facility] Narrative Medical decision making narrative: The patient EKG showing sinus rhythm with a heart rate of [address] elevation or depression The patient complained neurological examination was benign he had no neck stiffness and his blood workup showed no leukocytosis no fever recorded at any time The patient had a CT without contrast showing no acute pathology and his chemistry within normal The drug tox creen was negative as well as ethanol level The patient case discussed with the teleneurologist Dr. Gramajo and he recommended that the patient need an patient new onset seizure and headache management and mostly EEG and MRI The patient initially had the call to [facility] for transfer but they do not have a bed available for the next 24 hours The patient case was then discussed with [facility] neurology service and I spoke with Dr. Iraheta and he also recommended the admission to the hospitalist and to be consulted for new onset seizure The patient's case was discussed with Dr. Birch the hospitalist in [facility] and he accepted the patient Lab Data Labs: Lab Results 12/15/24 12/15/24 Range/Units 10:30 13:28 WBC 6.6 (4.0-11.0) 10^3/uL RBC 5.93 H (4.20-5.40) 10^6/uL Hgb 17.9 H (12.0-16.0) g/dL Hct 50.3 H (36.0-48.0) % MCV 84.8 (81.0-99.0) fL MCH 30.2 (26.7-34.0) pg MCHC 35.6 H (29.9-35.2) g/dL RDW 12.6 (11.0-15.0) % Plt Count 275 (150-450) 10^3/uL MPV 10.3 (9.5-13.5) fL Neut % (Auto) 49.2 (43.0-75.0) % Lymph % (Auto) 38.8 (20.5-60.0) % Tucker % (Auto) 9.7 (1.7-12.0) % Eos % (Auto) 1.2 (0.9-7.0) % Baso % (Auto) 0.8 (0.2-2.0) % Neut # (Auto) 3.2 (1.4-6.5) 10^3/uL Lymph # (Auto) 2.6 (1.2-3.8) 10^3/uL Tucker # (Auto) 0.6 (0.3-0.8) 10^3/uL Eos # (Auto) 0.1 (0.0-0.7) 10^3/uL Baso # (Auto) 0.1 (0.0-0.1) 10^3/uL Abs Immat Gran (auto) 0.02 (0.00-0.03) 10^3/uL Imm/Tot Granulo (auto) 0.3 (0.0-0.5) % PT 11.5 (9.0-11.6) sec INR 1.09 Sodium 141 (136-145) mmol/L Potassium 3.5 (3.5-5.1) mmol/L Chloride 100 (98-107) mmol/L Carbon Dioxide 27.6 (21.0-32.0) mmol/L Anion Gap 16.9 BUN 20.0 H (7.0-18.0) mg/dL Creatinine 1.02 (0.70-1.30) mg/dL Est GFR ( Amer) >60 (>=60 mL/min/1.73m^2) Est GFR (Non-Af Amer) >60 (>=60 mL/min/1.73m^2) BUN/Creatinine Ratio 19.6 Glucose 127 H (74-106) mg/dL Calcium 9.5 (8.5-10.1) mg/dL Magnesium 2.1 (1.8-2.4) mg/dL Total Bilirubin 0.9 (0.2-1.0) mg/dL AST 34 (15-37) U/L ALT 36 (16-63) U/L Alkaline Phosphatase 110 (46-116) U/L Troponin I High Sens <4.0 L (4.0-76.1) pg/mL Total Protein 8.0 (6.4-8.2) g/dL Albumin 4.5 (3.4-5.0) g/dL Globulin 3.5 g/dL Albumin/Globulin Ratio 1.3 Urine Opiates Screen Negative (NEGATIVE) Ur Buprenorphine Scrn Negative (NEGATIVE) Ur Oxycodone Screen Negative (NEGATIVE) Urine Methadone Screen Negative (NEGATIVE) Ur Barbiturates Screen Negative (NEGATIVE) U Tricyclic Antidepress Negative (NEGATIVE) Ur Phencyclidine Scrn Negative (NEGATIVE) Ur Amphetamines Screen Negative (NEGATIVE) U Methamphetamines Scrn Negative (NEGATIVE) U Benzodiazepines Scrn Negative (NEGATIVE) Urine Cocaine Screen Negative (NEGATIVE) U Cannabinoids Screen Negative (NEGATIVE) Ethanol Quant <3 mg/dL Discharge Plan Discharge Chief Complaint: Headache Clinical Impression: Headache, New onset seizure Patient Disposition: [facility] Time of Disposition Decision: 17:35 Discharge location: [facility] Dr Birch
--- NOTE | 2024-12-15 16:45 | PC.NURSE ---
Report called to Billy RODRIGUEZ [place] [facility] [place]
== END 2024-12-15 18:03 | disposition short-term general hospital (02) ==
PROVIDERS: Emergency Provider Emergency Medicine; PCP Family Medicine
DX: R56.9 Unspecified convulsions (principal); R51.9 Headache, unspecified
CPT/HCPCS: 36415; 70450; 80053; 80307; 80320; 83735; 84484; 85025; 85610; 93005; 99285